=== PATIENT | female | born 1995 | race Caucasian/White ===

== ENCOUNTER 2019-04-14 02:42 | Emergency (ER) | payer OTHER ==
[~2019-04-14] VITALS: Ht 167.6 cm; Wt 59.0 kg
[2019-04-14 02:54] VITALS: BP 120/80
--- NOTE | 2019-04-14 02:54 | NUR ---
ED Nurse Note: Patient walked into ED c/o low back pain accompanied by painful and frequent urination that started about 4 hours ago
[2019-04-14] MEDS ORDERED: ALBUTEROL2.5 MG/3 M INH (03:00)
[2019-04-14] MEDS ORDERED: PHENAZOPYRIDIN200 MG ORAL (03:22)
[2019-04-14] MEDS ORDERED: CEPHALEXIN500 MG ORAL (03:22)
--- NOTE | 2019-04-14 03:22 | Emergency Room Report ---
History of Present Illness General Chief Complaint: Female Urogenital Problems Source: Patient Present Illness HPI This is a 23-year-old female with no past medical history she presents with chief complaint of dysuria and frequency. Also with hematuria. No nausea no vomiting. Onset tonight. History of UTI in the past. No back pain. No fever. Worse with urination. Allergies: Coded Allergies: No Known Allergies (Unverified , 04/14/19) Patient History Past Medical History: see triage record, old chart reviewed Past Surgical History: none Pertinent Family History: none Social History: Denies: smoking Last Menstrual Period: 03/12/19 Now: No Immunizations: other Reviewed Nursing Documentation: PMH: Agreed; PSxH: Agreed Nursing Documentation-PMH Past Medical History: No History, Except For Hx Asthma: Yes Review of Systems Eye: Denies: eye pain, blurred vision ENT: Denies: ear pain, nose congestion, throat swelling Respiratory: Denies: cough, shortness of breath Cardiovascular: Denies: chest pain, palpitations Gastrointestinal: Denies: abdominal pain, diarrhea, nausea, vomiting Genitourinary: Reports: dysuria, frequency, hematuria Musculoskeletal: Denies: back pain, joint pain Skin: Denies: rash Neurological: Denies: headache, numbness Endocrine: Denies: increased thirst, increased urine Hematologic/Lymphatic: Denies: easy bruising All Other Systems: negative except mentioned in HPI Physical Exam Vital Signs Date Time Temp Pulse Resp B/P (MAP) Pulse Ox O2 Delivery O2 Flow Rate FiO2 04/14/19 02:54 98.2 85 18 120/80 (93) 98 Room Air Vitals normal Sp02 EP Interpretation: reviewed, normal General Appearance: well appearing, no apparent distress, alert Head: normocephalic, atraumatic Eyes: bilateral eye PERRL, bilateral eye EOMI ENT: hearing grossly normal, normal pharynx Neck: full range of motion, supple, no meningismus Respiratory: chest non-tender, lungs clear, normal breath sounds Cardiovascular #1: regular rate, rhythm, no murmur Gastrointestinal: normal bowel sounds, non tender, no mass, no organomegaly, no bruit, non-distended Musculoskeletal: back normal, gait/station normal, normal range of motion Psychiatric: mood/affect normal Skin: warm/dry Medical Decision Making Diagnostic Impression: Primary Impression: UTI (urinary tract infection) Qualified Codes: N30.01 - Acute cystitis with hematuria ER Course Patient presents with symptoms consistent with UTI. No evidence of pyelonephritis or sepsis. Dose of antibiotics given here. Urine culture sent. Last Vital Signs Date Time Temp Pulse Resp B/P (MAP) Pulse Ox O2 Delivery O2 Flow Rate FiO2 04/14/19 02:54 98.2 88 18 120/80 98 Room Air Status: improved Disposition: HOME, SELF-CARE Condition: Stable Scripts Phenazopyridine Hcl* (PYRIDIUM*) 200 Mg Tablet 200 MG ORAL THREE TIMES A DAY, #6 TAB 0 Refills Prov: Trent Gamez MD 04/14/19 Cephalexin* (KEFLEX*) 500 Mg Capsule 500 MG ORAL TID, #21 CAP Prov: Trent Gamez MD 04/14/19 Patient Instructions: Urinary Tract Infection Additional Instructions: Follow-up with your doctor in 7 days. Return if worse. Trent Gamez MD Apr 14, 2019 03:22
[2019-04-14 03:28] VITALS: BP 115/82
--- NOTE | 2019-04-14 03:28 | NUR ---
ER DISCHARGE NOTE: Patient is cleared to be discharged per ERMD, pt is aox4, on room air, with stable vital signs. pt was given dc and prescription instructions, pt was able to verbalize understanding, pt id band removed without complications. pt is able to ambulate with steady gait. pt took all belongings.
[2019-04-14] MEDS ORDERED: Phenazopyridine 200mg tab ORAL ONE (03:30)
[2019-04-14] MEDS ORDERED: Cephalexin 500mg cap ORAL ONE (03:30)
== END 2019-04-14 03:25 | disposition home or self-care (01) ==
LOC: EMR 03:15
DX: N30.01 Acute cystitis with hematuria (principal)
CPT/HCPCS: 87086; 87181; 99282